=== PATIENT | female | born 1995 | race Two or more races ===

== ENCOUNTER 2017-01-31 23:25 | Emergency (ER) | payer SELFPAY ==
[~2017-01-31] VITALS: Ht 170.2 cm; Wt 68.0 kg
[2017-01-31 23:32] VITALS: BP 122/79
[2017-02-01 00:22] LABS: BACTERIA,URINE FEW /HPF (0-FEW); BILIRUBIN,URINE NEGATIVE (NEG); GLUCOSE,URINE NEGATIVE (NEG); NITRITE,URINE NEGATIVE (NEG); PH,URINE 7.5; PROTEIN,URINE NEGATIVE (NEG-TRACE); RBC,URINE OCC /HPF (0-2)
[2017-02-01 00:23] LABS: SQUAMOUS EPITHELIAL CELL,UR MOD /LPF
--- NOTE | 2017-02-01 05:12 | ED.ADGEN ---
Past Medical History Past Medical History: No Pertinent History Past Surgical History: No Surgical History Alcohol Use: None Drug Use: None Adult General Chief Complaint Chief Complaint: URINARY FREQUENCY HPI HPI Patient is a 21 year old [place] female presents with urinary urgency and frequency for 2 days. No fever chills, nausea vomiting or sweats. No flank pain or lower back pain. Review of Systems Review of Systems ROS as per HPI. Allergies Allergies Allergies Coded Allergies Type Severity Reaction Last Updated Verified No Known Drug Allergies 01/31/17 No Physical Exam Physical Exam Constitutional: Well developed. HENT: Normocephalic, atraumatic, bilateral external ears normal, oropharynx moist. Eyes: PERRLA, EOMI, conjunctiva normal. Neck: Normal range of motion, no tenderness. Cardiovascular:Heart rate regular rhythm, no murmur. Lungs & Thorax: Bilateral breath sounds clear to auscultation. Abdomen: Bowel sounds normal, soft, tenderness to palpation. Skin: Warm, dry. Back: No tenderness. Extremities: No tenderness. Neurologic: Alert and oriented X 3, normal motor function, normal sensory function. Psychologic: Affect normal, judgement normal, mood normal. Current Patient Data Vital Signs Vital Signs Date Time Temp Pulse Resp B/P (MAP) Pulse Ox O2 Delivery O2 Flow Rate FiO2 01/31/17 23:32 98.1 88 18 99 Room Air 98.1 Lab Values Laboratory Tests Test 01/31/17 22:58 01/31/17 23:32 POC Urine HCG, Qualitative Hcg negative (Negative) Urine Collection Type Unknown Urine Color Yellow Urine Clarity Cloudy Urine pH 7.5 Urine Specific [place] 1.020 Urine Protein Negative mg/dL (NEG-TRACE) Urine Glucose (UA) Negative mg/dL (NEG) Urine Ketones (Stick) Negative mg/dL (NEG) Urine Blood Negative (NEG) Urine Nitrite Negative (NEG) Urine Bilirubin Negative (NEG) Urine Urobilinogen Dipstick 1.0 mg/dL (0.2 mg/dL) Urine Leukocyte Esterase Small (NEG) Urine RBC Occ /HPF (0-2) Urine WBC 1-4 /HPF (0-4) Urine Squamous Epithelial Cells Mod /LPF Urine Amorphous Sediment Present /HPF Urine Bacteria Few /HPF (0-FEW) EKG EKG [] Radiology/Procedures Radiology/Procedures [] Course & Med Decision Making Course & Med Decision Making Pertinent Labs and Imaging studies reviewed. (See chart for details) [Abdomen soft, mild tenderness. Will treat for UTI with PCP follow-up. Dragon Disclaimer Dragon Disclaimer This electronic medical record was generated, in whole or in part, using a voice recognition dictation system. BASIL MCMAHON DO Feb 01, 2017 05:12
== END 2017-02-01 00:38 | disposition home or self-care (01) ==
LOC: ER 23:25
DX: R10.9 Unspecified abdominal pain (principal); R35.0 Frequency of micturition; R39.15 Urgency of urination
CPT/HCPCS: 81001; 81025; 87086; 99284

== ENCOUNTER 2017-02-27 22:59 | Emergency (ER) | payer SELFPAY ==
[2017-02-27 23:30] VITALS: BP 124/65
[2017-02-27 23:45] LABS: BILIRUBIN,URINE NEGATIVE (NEG); GLUCOSE,URINE NEGATIVE (NEG); NITRITE,URINE NEGATIVE (NEG); PROTEIN,URINE NEGATIVE (NEG-TRACE)
[2017-02-27] MEDS ORDERED: ONDANSETRON ODT 4 MG TAB.RAPDIS. PO ONE (23:45)
[2017-02-27 23:50] LABS: BACTERIA,URINE FEW /HPF (0-FEW); RBC,URINE 0 /HPF (0-2); SQUAMOUS EPITHELIAL CELL,UR MOD /LPF
[2017-02-28] MEDS ORDERED: NITROFURANTOIN MONOHYD/M-CRYST 100 MG CAPSULE. PO ONE (00:15)
--- NOTE | 2017-02-28 00:29 | ED.ADGEN ---
Past Medical History Past Medical History: No Pertinent History Past Surgical History: No Surgical History Alcohol Use: None Drug Use: None Adult General Chief Complaint Chief Complaint: NAUSEA/VOMITING/DIARRHA HPI HPI Patient is a 21 year old female who presents nausea vomiting, chest and I am missed menstrual period. Patient was seen in the emergency department 4 weeks ago for urinary tract infection. Review of Systems Review of Systems ROS as per HPI. Current Medications Current Medications Current Medications Medications (Trade) Dose Ordered Sig/Emiliana Start Time Stop Time Status Last Admin Dose Admin Nitrofurantoin Macrocrystals (Macrobid) 100 mg 1X ONCE 02/28/17 00:15 02/28/17 00:16 DC 02/28/17 00:09 100 MG Ondansetron HCl (Zofran Odt) 4 mg 1X ONCE 02/27/17 23:45 02/27/17 23:46 DC 02/27/17 23:45 4 MG Allergies Allergies Allergies Coded Allergies Type Severity Reaction Last Updated Verified No Known Drug Allergies 01/31/17 No Physical Exam Physical Exam Constitutional: Well developed, well nourished, no acute distress, non-toxic appearance. [] HENT: Normocephalic, atraumatic, bilateral external ears normal, oropharynx moist, no oral exudates, nose normal. [] Eyes: PERRLA, EOMI, conjunctiva normal, no discharge. [] Neck: Normal range of motion, no tenderness, supple, no stridor. [] Cardiovascular:Heart rate regular rhythm, no murmur [] Lungs & Thorax: Bilateral breath sounds clear to auscultation [] Abdomen: Bowel sounds normal, soft, no tenderness, no masses, no pulsatile masses. [] Skin: Warm, dry, no erythema, no rash. [] Back: No tenderness, no CVA tenderness. [] Extremities: No tenderness, no cyanosis, no clubbing, ROM intact, no edema. [] Neurologic: Alert and oriented X 3, normal motor function, normal sensory function, no focal deficits noted. [] Psychologic: Affect normal, judgement normal, mood normal. [] Current Patient Data Vital Signs Vital Signs Date Time Temp Pulse Resp B/P (MAP) Pulse Ox O2 Delivery O2 Flow Rate FiO2 02/27/17 23:30 98.0 70 20 124/65 (84) 99 Room Air 98.0 Lab Values Laboratory Tests Test 02/27/17 22:42 02/27/17 23:23 POC Urine HCG, Qualitative Hcg positive (Negative) Urine Collection Type Unknown Urine Color Yellow Urine Clarity Clear Urine pH 7.0 Urine Specific [place] 1.020 Urine Protein Negative mg/dL (NEG-TRACE) Urine Glucose (UA) Negative mg/dL (NEG) Urine Ketones (Stick) Negative mg/dL (NEG) Urine Blood Negative (NEG) Urine Nitrite Negative (NEG) Urine Bilirubin Negative (NEG) Urine Urobilinogen Dipstick 2.0 mg/dL (0.2 mg/dL) Urine Leukocyte Esterase Moderate (NEG) Urine RBC 0 /HPF (0-2) Urine WBC 11-20 /HPF (0-4) Urine Squamous Epithelial Cells Mod /LPF Urine Bacteria Few /HPF (0-FEW) Urine Mucus Mod /LPF EKG EKG [] Radiology/Procedures Radiology/Procedures [] Course & Med Decision Making Course & Med Decision Making Pertinent Labs and Imaging studies reviewed. (See chart for details) [Urinary Tract infection, chest wall and likely secondary to reflux and nausea. We'll treat supportively with PCP/CHURN OPERATOR follow-up] Kate Disclaimer Carolynon Disclaimer This electronic medical record was generated, in whole or in part, using a voice recognition dictation system. BASIL MCMAHON DO Feb 28, 2017 00:29
--- NOTE | 2017-02-28 06:29 | EKG ---
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
== END 2017-02-28 00:11 | disposition home or self-care (01) ==
LOC: ER 22:59
DX: R11.2 Nausea with vomiting, unspecified (principal); R19.7 Diarrhea, unspecified
CPT/HCPCS: 81001; 81025; 87086; 93005; 99285; Q0162

== ENCOUNTER 2017-08-12 19:26 | Emergency (ER) | payer SELFPAY ==
[2017-08-12 21:52] LABS: BILIRUBIN,URINE NEGATIVE (NEG); CLARITY,URINE CLOUDY; GLUCOSE,URINE NEGATIVE (NEG); NITRITE,URINE POSITIVE (NEG); PH,URINE 6.5; PROTEIN,URINE 100 mg/dL (NEG-TRACE)
[2017-08-12 21:54] LABS: INFLUENZA A PATIENT NEGATIVE (NEGATIVE); INFLUENZA B PATIENT NEGATIVE (NEGATIVE); OBC FLU VALID
[2017-08-12 21:56] LABS: COLOR,URINE YELLOW
[2017-08-12 21:59] LABS: BACTERIA,URINE MANY /HPF (0-FEW); RBC,URINE RARE /HPF (0-2); SQUAMOUS EPITHELIAL CELL,UR MANY /LPF
== END 2017-08-12 22:39 | disposition home or self-care (01) ==
LOC: ER 19:26
DX: O23.43 Unspecified infection of urinary tract in pregnancy, third trimester (principal); Z3A.00 Weeks of gestation of pregnancy not specified
CPT/HCPCS: 81001; 87086; 87804; 87804-59; 99284

== ENCOUNTER 2017-08-12 22:43 | Observation (INO) | payer SELFPAY ==
[2017-08-12] MEDS ORDERED: IV RINGERS,LACTATED 1000ML 1,000 ML IV (23:13)
== END 2017-08-12 23:48 | disposition home or self-care (01) ==
LOC: 3 SO LND 22:43
DX: O23.43 Unspecified infection of urinary tract in pregnancy, third trimester (principal); Z3A.30 30 weeks gestation of pregnancy
CPT/HCPCS: G0378; G0379

== ENCOUNTER 2017-09-27 06:25 | Inpatient (IN) | payer SELFPAY ==
[~2017-09-27 06:25] MED LIST: L&D EPIDURAL CASSETTE 100 ML EP
[2017-09-27] MEDS ORDERED: OXYTOCIN 30 UNIT/500 ML PREMIX 500 ML IV ×4 (07:15→11:15)
[2017-09-27] MEDS ORDERED: AMPICILLIN SODIUM 2 GM in IV NORMAL SALINE 100ML 100 ML IV (07:15)
[2017-09-27] MEDS ORDERED: TERBUTALINE 1 MG/ML VIAL. SQ ×2 (07:15)
[2017-09-27] MEDS ORDERED: BUTORPHANOL 2 MG/ML VIAL. IV ×2 (07:15)
[2017-09-27] MEDS ORDERED: 0.9 % SODIUM CHLORIDE 10 ML DISP.SYRIN. IV ×4 (07:15→11:15)
[2017-09-27] MEDS ORDERED: AMPICILLIN SODIUM 1 GM in IV NORMAL SALINE 50ML 50 ML IV (07:30)
[2017-09-27] MEDS: fentaNYL PF VIAL 100 MCG/2 ML VIAL IV ×2 (07:41)
[2017-09-27 07:42] LABS: ADD MAN DIFF? NO
[2017-09-27] MEDS: IV RINGERS,LACTATED 1000ML 1,000 ML IV ×8 (07:44→23:13)
[2017-09-27] MEDS: AMPICILLIN SODIUM IV Push 2 GM VIAL. IVP ×2 (07:45)
[2017-09-27 07:53] LABS: BASO % 0 % (0-3); EOS # 0.2 x10^3/uL (0.0-0.7); EOS % 1 % (0-3); HEMATOCRIT 25.4 % (36.0-47.0); HEMOGLOBIN 7.6 g/dL (12.0-15.5); LYMPH # 2.7 x10^3/uL (1.0-4.8); LYMPH % 20 % (24-48); MEAN CORPUSCULAR HEMOGLOBIN 20 pg (25-35); MEAN CORPUSCULAR HGB CONC 30 g/dL (31-37); MEAN CORPUSCULAR VOLUME 67 fL (79-100); MONO # 0.9 x10^3/uL (0.0-1.1); MONO % 7 % (0-9); NEUT # 9.8 x10^3uL (1.8-7.7); NEUT % 72 % (31-73); PLATELET COUNT 163 x10^3/uL (140-400); RED BLOOD COUNT 3.79 x10^6/uL (3.50-5.40); RED CELL DISTRIBUTION WIDTH 19.2 % (11.5-14.5); WHITE BLOOD COUNT 13.7 x10^3/uL (4.0-11.0)
[2017-09-27] MEDS ORDERED: OXYTOCIN PREMIX 30 UNIT/500 ML BAG. IV ×2 (09:00)
[2017-09-27] MEDS ORDERED: L&D EPIDURAL SYRINGE 50 ML EP ×2 (10:00)
[2017-09-27 10:36] LABS: ANISOCYTOSIS PRESENT; HYPOCHROMIA PRESENT; MICROCYTOSIS PRESENT; PLT ESTIMATE ADEQUATE (ADEQUATE); POLYCHROMASIA PRESENT
[2017-09-27] MEDS ORDERED: PHENYLEPH/MINERAL OIL/PETROLAT RECTAL OINTMENT 28GM TUBE. RC ×2 (11:15)
[2017-09-27] MEDS ORDERED: MAG HYDROX/ALUMINUM HYD/SIMETH 30 ML ORAL.SUSP PO ×2 (11:15)
[2017-09-27] MEDS ORDERED: diphenhydrAMINE HCL 25 MG CAPSULE PO ×2 (11:15)
[2017-09-27] MEDS ORDERED: oxyCODONE/APAP 5/325 1 TAB TABLET PO ×4 (11:15)
[2017-09-27] MEDS ORDERED: ACETAMINOPHEN 325 MG TABLET. PO ×2 (11:15)
[2017-09-27] MEDS ORDERED: SIMETHICONE 80 MG TAB.CHEW PO ×2 (11:15)
[2017-09-27] MEDS ORDERED: ZOLPIDEM 5 MG TABLET. PO ×2 (11:15)
[2017-09-27] MEDS ORDERED: HYDROCORTISONE 1% TOPICAL OINTMENT 30GM TUBE. TP ×2 (11:15)
[2017-09-27] MEDS ORDERED: BENZOCAINE 20% TOPICAL AEROSOL SPRAY 57GM CAN. TP ×2 (11:15)
[2017-09-27] MEDS ORDERED: MAGNESIUM HYDROXIDE 2,400 MG/30 ML ORAL.SUSP. PO ×2 (11:15)
[2017-09-27] MEDS: IBUPROFEN 800 MG TABLET. PO ×4 (11:22→22:11)
[2017-09-27] MEDS: LIDOCAINE 1% PF 30 ML VIAL. INJ ×2 (11:23)
[2017-09-27 11:32] LABS: ALBUMIN 2.4 g/dL (3.4-5.0); ALBUMIN/GLOBULIN RATIO 0.6 (1.0-1.7); ALK PHOS 149 U/L (46-116); ALT (SGPT) 12 U/L (14-59); ANION GAP 13 (6-14); AST (SGOT) 22 U/L (15-37); BLOOD UREA NITROGEN 4 mg/dL (7-20); BUN/CREATININE RATIO 7 (6-20); CALCIUM 7.9 mg/dL (8.5-10.1); CARBON DIOXIDE 21 mmol/L (21-32); CHLORIDE 103 mmol/L (98-107); CREATININE 0.6 mg/dL (0.6-1.0); GFR 126.2; GLUCOSE 94 mg/dL (70-99); POTASSIUM 3.7 mmol/L (3.5-5.1); SODIUM 137 mmol/L (136-145); TOTAL BILIRUBIN 0.5 mg/dL (0.2-1.0); TOTAL PROTEIN 6.7 g/dL (6.4-8.2)
[2017-09-27] MEDS: AMPICILLIN SODIUM IV Push 1 GM VIAL. IVP ×6 (12:00→20:00)
[2017-09-27] MEDS: FERROUS SULFATE 325 MG TABLET. PO ×2 (22:11)
[2017-09-27] MEDS: SENNOSIDES/DOCUSATE 8.6/50MG TABLET. PO ×2 (22:12)
[2017-09-28] MEDS: AMPICILLIN SODIUM IV Push 1 GM VIAL. IVP ×10 (04:00→16:00)
[2017-09-28] MEDS: IV RINGERS,LACTATED 1000ML 1,000 ML IV ×8 (04:39→15:13)
[2017-09-28 05:34] LABS: ADD MAN DIFF? NO
[2017-09-28] MEDS: IBUPROFEN 800 MG TABLET. PO ×4 (05:40→21:38)
[2017-09-28 05:50] LABS: BASO % 0 % (0-3); EOS # 0.2 x10^3/uL (0.0-0.7); EOS % 1 % (0-3); HEMATOCRIT 21.2 % (36.0-47.0); LYMPH # 3.1 x10^3/uL (1.0-4.8); LYMPH % 21 % (24-48); MEAN CORPUSCULAR HEMOGLOBIN 20 pg (25-35); MEAN CORPUSCULAR HGB CONC 31 g/dL (31-37); MEAN CORPUSCULAR VOLUME 67 fL (79-100); MONO % 7 % (0-9); NEUT # 10.3 x10^3uL (1.8-7.7); NEUT % 70 % (31-73); PLATELET COUNT 145 x10^3/uL (140-400); RED BLOOD COUNT 3.18 x10^6/uL (3.50-5.40); WHITE BLOOD COUNT 14.6 x10^3/uL (4.0-11.0)
[2017-09-28 06:00] LABS: HEMOGLOBIN 6.5 g/dL (12.0-15.5)
[2017-09-28] MEDS: SENNOSIDES/DOCUSATE 8.6/50MG TABLET. PO ×4 (09:00→21:38)
[2017-09-28] MEDS: DOCUSATE SODIUM 100 MG CAPSULE. PO ×2 (09:36)
[2017-09-28] MEDS: FERROUS SULFATE 325 MG TABLET. PO ×4 (09:36→19:30)
[2017-09-28 13:52] LABS: IMMEDIATE SPIN CROSSMATCH 1 1
[2017-09-28 18:18] LABS: HEMATOCRIT 27.2 % (36.0-47.0); HEMOGLOBIN 8.4 g/dL (12.0-15.5); MEAN CORPUSCULAR HEMOGLOBIN 21 pg (25-35); MEAN CORPUSCULAR HGB CONC 31 g/dL (31-37); MEAN CORPUSCULAR VOLUME 69 fL (79-100); PLATELET COUNT 149 x10^3/uL (140-400); RED BLOOD COUNT 3.93 x10^6/uL (3.50-5.40); RED CELL DISTRIBUTION WIDTH 20.5 % (11.5-14.5); WHITE BLOOD COUNT 17.1 x10^3/uL (4.0-11.0)
[2017-09-29] MEDS: FERROUS SULFATE 325 MG TABLET. PO ×2 (08:13)
[2017-09-29] MEDS: DOCUSATE SODIUM 100 MG CAPSULE. PO ×2 (08:13)
[2017-09-30 08:26] LABS: RPR Non Reactive (Non Reactive)
== END 2017-09-29 16:00 | disposition home or self-care (01) | DRG 775 ==
LOC: 3 SO LND 06:25 → 3 NORTH 11:03
PROC: 10E0XZZ Delivery of Products of Conception, External Approach (ICD-10-PCS; principal; 2017-09-27)
PROC: 30233N1 Transfusion of Nonautologous Red Blood Cells into Peripheral Vein, Percutaneous Approach (ICD-10-PCS; 2017-09-28)
DX: O69.81X0 Labor and delivery complicated by cord around neck, without compression, not applicable or unspecified (principal); D50.0 Iron deficiency anemia secondary to blood loss (chronic); O99.02 Anemia complicating childbirth; Z3A.40 40 weeks gestation of pregnancy; Z37.0 Single live birth
CPT/HCPCS: 36415; 80053; 85025; 85027; 86593; 86850; 86900; 86901; 86920; J0290; J2590; J3010; J7120; P9016

== ENCOUNTER 2018-08-23 22:17 | Observation (INO) | payer SELFPAY ==
[2017-09-29 15:30] VITALS: BP 133/82
[~2018-08-23 22:17] MED LIST changes: +HYDR-3164 PO; -L&D EPIDURAL CASSETTE 100 ML EP; +NAPR-514 PO; +NITR100C62 PO
[2018-08-23 23:58] LABS: BASO % 0 % (0-3); EOS # 0.5 x10^3/uL (0.0-0.7); EOS % 5 % (0-3); HEMATOCRIT 21.9 % (36.0-47.0); HEMOGLOBIN 7.2 g/dL (12.0-15.5); LYMPH # 2.1 x10^3/uL (1.0-4.8); LYMPH % 19 % (24-48); MEAN CORPUSCULAR HEMOGLOBIN 22 pg (25-35); MEAN CORPUSCULAR HGB CONC 33 g/dL (31-37); MEAN CORPUSCULAR VOLUME 66 fL (79-100); MONO # 0.9 x10^3/uL (0.0-1.1); MONO % 8 % (0-9); NEUT # 7.4 x10^3uL (1.8-7.7); NEUT % 68 % (31-73); PLATELET COUNT 213 x10^3/uL (140-400); RED BLOOD COUNT 3.33 x10^6/uL (3.50-5.40); RED CELL DISTRIBUTION WIDTH 17.5 % (11.5-14.5); WHITE BLOOD COUNT 10.9 x10^3/uL (4.0-11.0)
--- NOTE | 2018-08-24 00:08 | RAD ---
Examination: Obstetric ultrasound greater than 14 weeks HISTORY: History of contractions, , no care COMPARISON: None available FINDINGS: Single living intrauterine identified with heart rate of 136 bpm. movement, cardiac activity, 4 chamber heart, three-vessel cord, fluid in the bladder, stomach, kidneys, are identified. position is cephalic. brain and spine are not well-visualized. Amniotic fluid index measures 7.1 cm. Ultrasound age is 35 weeks and 0 days with ultrasound date of delivery is 09/27/2018. Estimated weight 2536 g. Cephalic index 82.2. Head circumference to abdominal circumference ratio 1.02. Femur length to biparietal diameter 78. Femur length to head circumference 21.1. Femur length to abdominal circumference 21.5. The biparietal diameter measures 8.58 cm corresponding to 34 weeks and 4 days. Head circumference measures 31.7 cm corresponding to 35 weeks and 5 days. Abdominal circumference measures 31.06 cm corresponding to 35 weeks and 0 days. Femur length measures 6.6 cm corresponding 34 weeks and 3 days. IMPRESSION: 1. Single living intrauterine with heart of 135 bpm. Ultrasound age is 35 weeks and 0 days. 2. Amniotic fluid index measures 7.1 cm. Electronically signed by: Micheal Zapien MD (08/24/2018 12:03 AM) [facility]
[2018-08-24 00:39] LABS: BILIRUBIN,URINE NEGATIVE (NEG); CLARITY,URINE CLEAR; COLOR,URINE YELLOW; NITRITE,URINE NEGATIVE (NEG); PH,URINE 6.5; PROTEIN,URINE NEGATIVE (NEG-TRACE)
[2018-08-24 00:45] LABS: BARBITURATES NEG (NEG); BENZODIAZEPINES NEG (NEG); CANNABINOIDS NEG (NEG); COCAINE NEG (NEG); METHADONE NEG (NEG); OPIATES NEG (NEG); PHENCYCLIDINE NEG (NEG)
[2018-08-24 00:47] LABS: AMPHETAMINE/METHAMPHETAMINE NEG (NEG)
[2018-08-24 00:49] LABS: BACTERIA,URINE FEW /HPF (0-FEW); RBC,URINE 20-40 /HPF (0-2); SQUAMOUS EPITHELIAL CELL,UR FEW /LPF
[2018-08-24 05:15] LABS: HYPOCHROMIA MOD; PLT ESTIMATE ADEQUATE (ADEQUATE); POLYCHROMASIA SLIGHT
[2018-08-24 05:16] LABS: ANISOCYTOSIS SLIGHT; MICROCYTOSIS MARKED
== END 2018-08-24 03:03 | disposition home or self-care (01) ==
LOC: 3 SO LND 22:17
PROVIDERS: ADMIT Family Medicine; ATTEND Family Medicine
DX: O26.893 Other specified pregnancy related conditions, third trimester (principal); R10.9 Unspecified abdominal pain; R10.2 Pelvic and perineal pain; R30.9 Painful micturition, unspecified; Z3A.35 35 weeks gestation of pregnancy
CPT/HCPCS: 36415; 76805; 80307; 81001; 85025; 86592; 86762; 86850; 86900; 86901; 87340; G0378; G0379; 87086

== ENCOUNTER 2018-09-28 13:37 | Inpatient (IN) | payer SELFPAY ==
[~2018-09-28] VITALS: Ht 160 cm; Wt 93.4 kg
[2018-09-28] MEDS ORDERED: OXYTOCIN 30 UNIT/500 ML PREMIX 500 ML IV PRN ×3 (14:15→17:45)
[2018-09-28] MEDS ORDERED: LIDOCAINE 1% PF 30 ML VIAL. INJ PRN (14:15)
[2018-09-28] MEDS ORDERED: BUTORPHANOL 2 MG/ML VIAL. IV PRN ×2 (14:15)
[2018-09-28] MEDS ORDERED: fentaNYL PF VIAL 100 MCG/2 ML VIAL IV PRN (14:15)
[2018-09-28] MEDS ORDERED: IV RINGERS,LACTATED 1000ML 1,000 ML IV PRN (14:15)
[2018-09-28] MEDS ORDERED: ONDANSETRON PF 4 MG/2 ML VIAL. IV PRN (14:15)
[2018-09-28] MEDS ORDERED: 0.9 % SODIUM CHLORIDE 10 ML DISP.SYRIN. IV PRN ×2 (14:15→17:45)
[2018-09-28] MEDS ORDERED: AMPICILLIN SODIUM 2 GM in IV NORMAL SALINE 100ML 100 ML IV ONE (14:30)
[2018-09-28 14:43] LABS: BILIRUBIN,URINE NEGATIVE (NEG); CLARITY,URINE CLEAR; COLOR,URINE AMBER; NITRITE,URINE NEGATIVE (NEG); PH,URINE 6.5; PROTEIN,URINE 30 mg/dL (NEG-TRACE)
[2018-09-28 15:00] VITALS: BP 135/81
[2018-09-28 15:01] LABS: BASO % 0 % (0-3); EOS # 0.4 x10^3/uL (0.0-0.7); EOS % 4 % (0-3); HEMATOCRIT 23.3 % (36.0-47.0); HEMOGLOBIN 7.2 g/dL (12.0-15.5); LYMPH # 1.9 x10^3/uL (1.0-4.8); LYMPH % 18 % (24-48); MEAN CORPUSCULAR HEMOGLOBIN 19 pg (25-35); MEAN CORPUSCULAR HGB CONC 31 g/dL (31-37); MEAN CORPUSCULAR VOLUME 62 fL (79-100); MONO # 0.5 x10^3/uL (0.0-1.1); MONO % 5 % (0-9); NEUT # 7.9 x10^3uL (1.8-7.7); NEUT % 74 % (31-73); PLATELET COUNT 171 x10^3/uL (140-400); RED BLOOD COUNT 3.73 x10^6/uL (3.50-5.40); RED CELL DISTRIBUTION WIDTH 19.7 % (11.5-14.5); WHITE BLOOD COUNT 10.7 x10^3/uL (4.0-11.0)
[2018-09-28 15:37] LABS: BACTERIA,URINE FEW /HPF (0-FEW); RBC,URINE 0 /HPF (0-2); SQUAMOUS EPITHELIAL CELL,UR MOD /LPF
[2018-09-28] MEDS ORDERED: OXYTOCIN PREMIX 30 UNIT/500 ML BAG. IV ONE (17:00)
[2018-09-28] MEDS ORDERED: PHENYLEPH/MINERAL OIL/PETROLAT RECTAL OINTMENT 28GM TUBE. RC PRN (17:45)
[2018-09-28] MEDS ORDERED: SIMETHICONE 80 MG TAB.CHEW PO PRN (17:45)
[2018-09-28] MEDS ORDERED: diphenhydrAMINE HCL 25 MG CAPSULE PO PRN (17:45)
[2018-09-28] MEDS ORDERED: oxyCODONE/APAP 5/325 1 TAB TABLET PO PRN (17:45)
[2018-09-28] MEDS ORDERED: BENZOCAINE 20% TOPICAL AEROSOL SPRAY 57GM CAN. TP PRN (17:45)
[2018-09-28] MEDS ORDERED: MAGNESIUM HYDROXIDE 2,400 MG/30 ML ORAL.SUSP. PO PRN (17:45)
[2018-09-28] MEDS ORDERED: MAG HYDROX/ALUMINUM HYD/SIMETH 30 ML ORAL.SUSP PO PRN (17:45)
[2018-09-28] MEDS ORDERED: HYDROCORTISONE 1% TOPICAL OINTMENT 30GM TUBE. TP PRN (17:45)
[2018-09-28] MEDS ORDERED: MMR per PROTOCOL. MC PRN (17:45)
[2018-09-28] MEDS ORDERED: ZOLPIDEM 5 MG TABLET. PO PRN (17:45)
[2018-09-28] MEDS ORDERED: ACETAMINOPHEN 325 MG TABLET. PO PRN (17:45)
--- NOTE | 2018-09-28 17:47 | PDOC ---
GENERAL General: 23 yrs old female from [facility] Came in Labor Cervix dilated 4 Cms. Admitted for Delivery. VITAL SIGNS Vital Signs: Vital Signs Date Time Temp Pulse Resp B/P (MAP) Pulse Ox O2 Delivery O2 Flow Rate FiO2 09/28/18 15:47 20 09/28/18 15:00 98.1 90 135/81 (99) 98.1 ALLERGIES Allergies: Allergies Coded Allergies Type Severity Reaction Last Updated Verified No Known Drug Allergies 01/31/17 No MEDS Medications: Current Medications Medications (Trade) Dose Ordered Sig/Emiliana Start Time Stop Time Status Last Admin Dose Admin Ampicillin Sodium 1 gm/Sodium Chloride 50 ml @ 100 mls/hr Q4H 09/28/18 18:00 Ampicillin Sodium 2 gm/Sodium Chloride 100 ml @ 200 mls/hr 1X ONCE 09/28/18 14:30 09/28/18 14:59 DC 09/28/18 15:03 200 MLS/HR Butorphanol Tartrate (Stadol) 2 mg PRN Q1HR PRN 09/28/18 14:15 Fentanyl Citrate (Fentanyl 2ml Vial) 100 mcg PRN Q1HR PRN 09/28/18 14:15 09/28/18 15:47 100 MCG Ibuprofen (Motrin) 800 mg PRN Q6HRS PRN 09/28/18 14:15 Lidocaine HCl (Xylocaine 1% Pf 30ml Vial) 30 ml 1X PRN PRN 09/28/18 14:15 09/30/18 14:14 Ondansetron HCl (Zofran) 4 mg PRN Q4HRS PRN 09/28/18 14:15 Oxytocin/Sodium Chloride 500 ml @ 0 mls/hr CONT PRN PRN 09/28/18 14:15 Ringer's Solution 1,000 ml @ 125 mls/hr Q8H PRN 09/28/18 14:15 09/28/18 14:29 125 MLS/HR Sodium Chloride (Normal Saline Flush) 3 ml QSHIFT PRN 09/28/18 14:15 LAB Lab: Laboratory Tests Test 09/28/18 14:00 09/28/18 14:25 Urine Collection Type Unknown Urine Color Trudy Urine Clarity Clear Urine pH 6.5 Urine Specific [place] 1.020 Urine Protein 30 mg/dL (NEG-TRACE) Urine Glucose (UA) Negative mg/dL (NEG) Urine Ketones (Stick) Negative mg/dL (NEG) Urine Blood Negative (NEG) Urine Nitrite Negative (NEG) Urine Bilirubin Negative (NEG) Urine Urobilinogen Dipstick 2.0 mg/dL (0.2 mg/dL) Urine Leukocyte Esterase Small (NEG) Urine RBC 0 /HPF (0-2) Urine WBC 1-4 /HPF (0-4) Urine Squamous Epithelial Cells Mod /LPF Urine Bacteria Few /HPF (0-FEW) Urine Mucus Mod /LPF White Blood Count 10.7 x10^3/uL (4.0-11.0) Red Blood Count 3.73 x10^6/uL (3.50-5.40) Hemoglobin 7.2 g/dL (12.0-15.5) Hematocrit 23.3 % (36.0-47.0) Mean Corpuscular Volume 62 fL (79-100) Mean Corpuscular Hemoglobin 19 pg (25-35) Mean Corpuscular Hemoglobin Concent 31 g/dL (31-37) Red Cell Distribution Width 19.7 % (11.5-14.5) Platelet Count 171 x10^3/uL (140-400) Neutrophils (%) (Auto) 74 % (31-73) Lymphocytes (%) (Auto) 18 % (24-48) Monocytes (%) (Auto) 5 % (0-9) Eosinophils (%) (Auto) 4 % (0-3) Basophils (%) (Auto) 0 % (0-3) Neutrophils # (Auto) 7.9 x10^3uL (1.8-7.7) Lymphocytes # (Auto) 1.9 x10^3/uL (1.0-4.8) Monocytes # (Auto) 0.5 x10^3/uL (0.0-1.1) Eosinophils # (Auto) 0.4 x10^3/uL (0.0-0.7) Basophils # (Auto) 0.0 x10^3/uL (0.0-0.2) ASSESSMENT & PLAN A&P Delivered an alive Male Baby by Spontaneous Vaginal Delivery. Alive Male Baby 7lbs and 15oz delivered with 8 and 9. CORBY ZURITA MD Sep 28, 2018 17:47
[2018-09-28] MEDS ORDERED: IBUPROFEN 200 MG TABLET. PO SCH (18:00)
[2018-09-28] MEDS ORDERED: AMPICILLIN SODIUM 1 GM in IV NORMAL SALINE 50ML 50 ML IV SCH (18:00)
[2018-09-28] MEDS: IBUPROFEN 400 MG TABLET. PO PRN (18:05)
--- NOTE | 2018-09-28 18:16 | HP ---
ADMIT DATE: 09/28/2018 CHIEF COMPLAINT AND HISTORY OF PRESENT ILLNESS: This patient is a 23-year-old female, who is a 2, para 1, EDC 09/26/2018, had just 1 previous visit at the hospital here and she was sent home. She comes in today with a history of having contractions. The patient in active labor and at the time of admission to the hospital, cervix dilated to 4 cm, membranes intact, having active contractions and the heart tones are 146 per minute. ALLERGIES: None known. PAST MEDICAL HISTORY: Nothing of importance. She has had a previous normal delivery. PHYSICAL EXAMINATION: VITAL SIGNS: Being stable. HEAD, EYES, NOSE, THROAT: Within normal limits. LUNGS: Clear. HEART: Heart sounds regular sinus rhythm. BREASTS: No masses palpable. ABDOMEN: Soft, term size uterus. heart tones are 146 per minute, vertex presenting, having contractions. PELVIC: Showed cervix 4 cm dilated and membranes intact and no bleeding noted at this time. EXTREMITIES: No edema of feet. IMPRESSION: 2, term . PLAN: Vaginal delivery. CORBY ZURITA MD DR: REYNALDO/marcus JOB#: [id number] / [id number]
--- NOTE | 2018-09-28 18:18 | OP ---
DATE OF SURGERY: 09/28/2018 DELIVERY NOTE This patient is a 23-year-old female, who is from [facility], comes in to the hospital Labor and Delivery with a history of having contractions and the patient in active labor and at the time of admission to the hospital, cervix was dilated to 4 cm, membranes bulging. heart tones are 140 per minute, vertex presenting, the patient having active contractions and she did have a normal course of labor. Amniotomy was done and she was about 9 cm and she had a spontaneous vaginal delivery. A live male infant weighing 7 pound 15 ounce was delivered with the score of 8, 9 and 9 without any problem. Cord was clamped and cut. Cord blood was taken. Placenta removed spontaneous. No vaginal lacerations noted. Estimated blood loss about 100 mL. Baby is referred to civil draftsman for further care and treatment. Mother tolerated the delivery well. No complications at this time. CORBY ZURITA MD DR: REYNALDO/marcus JOB#: [id number] / [id number]
[2018-09-28 18:52] LABS: ANISOCYTOSIS SLIGHT; HYPOCHROMIA MARKED; MICROCYTOSIS MARKED; PLT ESTIMATE ADEQUATE (ADEQUATE); POIKILOCYTOSIS SLIGHT
[2018-09-28 18:53] LABS: POLYCHROMASIA PRESENT
[2018-09-28 20:07] VITALS: BP 122/64
[2018-09-28 21:19] VITALS: BP 132/83
[2018-09-29] VITALS (12 sets, daily range): BP systolic 98–152; BP diastolic 59–88
[2018-09-29] MEDS: IBUPROFEN 400 MG TABLET. PO PRN (05:12)
--- NOTE | 2018-09-29 09:53 | PDOC ---
GENERAL General: Abdomen soft Doing ok. VITAL SIGNS Vital Signs: Vital Signs Date Time Temp Pulse Resp B/P (MAP) Pulse Ox O2 Delivery O2 Flow Rate FiO2 09/29/18 05:51 97.5 82 18 135/78 (97) 99 Room Air 97.5 I & O I & O Intake and Output 09/29/18 06:59 Intake Total 1200 ml Balance 1200 ml Intake Oral 1200 ml # Voids 3 ALLERGIES Allergies: Allergies Coded Allergies Type Severity Reaction Last Updated Verified No Known Drug Allergies 01/31/17 No MEDS Medications: Current Medications Medications (Trade) Dose Ordered Sig/Emiliana Start Time Stop Time Status Last Admin Dose Admin Acetaminophen (Tylenol) 650 mg PRN Q6HRS PRN 09/28/18 17:45 Al Hydroxide/Mg Hydroxide (Mylanta Plus Xs) 30 ml PRN Q4HRS PRN 09/28/18 17:45 Ampicillin Sodium 1 gm/Sodium Chloride 50 ml @ 100 mls/hr Q4H 09/28/18 18:00 Ampicillin Sodium 2 gm/Sodium Chloride 100 ml @ 200 mls/hr 1X ONCE 09/28/18 14:30 09/28/18 14:59 DC 09/28/18 15:03 200 MLS/HR Benzocaine (Americaine) 1 spray PRN QID PRN 09/28/18 17:45 09/28/18 18:05 1 SPRAY Butorphanol Tartrate (Stadol) 2 mg PRN Q1HR PRN 09/28/18 14:15 Diphenhydramine HCl (Benadryl) 25 mg PRN Q6HRS PRN 09/28/18 17:45 Docusate Sodium (Colace) 100 mg PRN BID PRN 09/28/18 17:45 Fentanyl Citrate (Fentanyl 2ml Vial) 100 mcg PRN Q1HR PRN 09/28/18 14:15 09/28/18 15:47 100 MCG Ferrous Sulfate (Feosol) 325 mg BIDWMEALS 09/29/18 08:00 Hydrocortisone (Cortaid) 1 akua PRN QID PRN 09/28/18 17:45 Ibuprofen (Motrin) 600 mg Q6HRS 09/28/18 18:00 Info (Do NOT chart on this placeholder) 1 ea 1X PRN PRN 09/28/18 17:45 Lidocaine HCl (Xylocaine 1% Pf 30ml Vial) 30 ml 1X PRN PRN 09/28/18 14:15 09/30/18 14:14 Magnesium Hydroxide (Milk Of Magnesia) 2,400 mg PRN DAILY PRN 09/28/18 17:45 Ondansetron HCl (Zofran) 4 mg PRN Q4HRS PRN 09/28/18 14:15 Oxycodone/ Acetaminophen (Percocet 5/325) 2 tab PRN Q4HRS PRN 09/28/18 17:45 Oxytocin/Sodium Chloride 500 ml @ 62.5 mls/hr CONT PRN 09/28/18 17:45 09/29/18 01:44 DC Phenyleph/Shark Oil/Min Oil/Petrol (Preparation H) 1 akua PRN QID PRN 09/28/18 17:45 Ringer's Solution 1,000 ml @ 125 mls/hr Q8H PRN 09/28/18 14:15 09/28/18 14:29 125 MLS/HR Simethicone (Gas-X) 80 mg PRN AFTMEALHC PRN 09/28/18 17:45 Sodium Chloride (Normal Saline Flush) 10 ml QSHIFT PRN 09/28/18 17:45 Zolpidem Tartrate (Ambien) 5 mg PRN QHS PRN 09/28/18 17:45 LAB Lab: Laboratory Tests Test 09/28/18 14:00 09/28/18 14:25 09/29/18 05:00 Urine Collection Type Unknown Urine Color Trudy Urine Clarity Clear Urine pH 6.5 Urine Specific [place] 1.020 Urine Protein 30 mg/dL (NEG-TRACE) Urine Glucose (UA) Negative mg/dL (NEG) Urine Ketones (Stick) Negative mg/dL (NEG) Urine Blood Negative (NEG) Urine Nitrite Negative (NEG) Urine Bilirubin Negative (NEG) Urine Urobilinogen Dipstick 2.0 mg/dL (0.2 mg/dL) Urine Leukocyte Esterase Small (NEG) Urine RBC 0 /HPF (0-2) Urine WBC 1-4 /HPF (0-4) Urine Squamous Epithelial Cells Mod /LPF Urine Bacteria Few /HPF (0-FEW) Urine Mucus Mod /LPF White Blood Count 10.7 x10^3/uL (4.0-11.0) Red Blood Count 3.73 x10^6/uL (3.50-5.40) Hemoglobin 7.2 g/dL (12.0-15.5) 6.2 g/dL (12.0-15.5) Hematocrit 23.3 % (36.0-47.0) 20.8 % (36.0-47.0) Mean Corpuscular Volume 62 fL (79-100) Mean Corpuscular Hemoglobin 19 pg (25-35) Mean Corpuscular Hemoglobin Concent 31 g/dL (31-37) Red Cell Distribution Width 19.7 % (11.5-14.5) Platelet Count 171 x10^3/uL (140-400) Neutrophils (%) (Auto) 74 % (31-73) Lymphocytes (%) (Auto) 18 % (24-48) Monocytes (%) (Auto) 5 % (0-9) Eosinophils (%) (Auto) 4 % (0-3) Basophils (%) (Auto) 0 % (0-3) Neutrophils # (Auto) 7.9 x10^3uL (1.8-7.7) Lymphocytes # (Auto) 1.9 x10^3/uL (1.0-4.8) Monocytes # (Auto) 0.5 x10^3/uL (0.0-1.1) Eosinophils # (Auto) 0.4 x10^3/uL (0.0-0.7) Basophils # (Auto) 0.0 x10^3/uL (0.0-0.2) Platelet Estimate Adequate (ADEQUATE) Polychromasia Present Hypochromasia Marked Poikilocytosis Slight Anisocytosis Slight Microcytosis Marked Treponema pallidum Antibody Nonreactive (Nonreactive) HIV (1&2) Antibody Screen Nonreactive (Nonreactive) ASSESSMENT & PLAN A&P Vital signs stable. HB 6.2 today. 2 units BT given Doing ok No problems. CORBY ZURITA MD Sep 29, 2018 09:53
[2018-09-29] MEDS: DOCUSATE SODIUM 100 MG CAPSULE. PO PRN ×2 (10:12→21:57)
[2018-09-29] MEDS: FERROUS SULFATE 325 MG TABLET. PO SCH ×2 (10:12→21:57)
[2018-09-29] MEDS ORDERED: MEASLES, MUMPS & RUBELLA VACC 0.5 ML VIAL. VAX SQ ONE (13:30)
[2018-09-29 21:23] LABS: HEMATOCRIT 25.9 % (36.0-47.0)
[2018-09-30 05:58] VITALS: BP 128/73
[2018-09-30] MEDS: IBUPROFEN 400 MG TABLET. PO PRN ×2 (06:33→15:06)
[2018-09-30 10:52] VITALS: BP 131/90
--- NOTE | 2018-09-30 11:01 | PDOC ---
GENERAL General: Patient doing ok No problems. Likes to go home. VITAL SIGNS Vital Signs: Vital Signs Date Time Temp Pulse Resp B/P (MAP) Pulse Ox O2 Delivery O2 Flow Rate FiO2 09/30/18 10:52 97.5 76 18 131/90 (104) 97 Room Air 97.5 I & O I & O Intake and Output 09/30/18 07:00 Intake Total 1340 ml Balance 1340 ml Intake Oral 1000 ml Blood Product IV Normal Saline Flush 340 ml # Voids 1 ALLERGIES Allergies: Allergies Coded Allergies Type Severity Reaction Last Updated Verified No Known Drug Allergies 01/31/17 No MEDS Medications: Current Medications Medications (Trade) Dose Ordered Sig/Emiliana Start Time Stop Time Status Last Admin Dose Admin Acetaminophen (Tylenol) 650 mg PRN Q6HRS PRN 09/28/18 17:45 Al Hydroxide/Mg Hydroxide (Mylanta Plus Xs) 30 ml PRN Q4HRS PRN 09/28/18 17:45 Ampicillin Sodium 1 gm/Sodium Chloride 50 ml @ 100 mls/hr Q4H 09/28/18 18:00 Ampicillin Sodium 2 gm/Sodium Chloride 100 ml @ 200 mls/hr 1X ONCE 09/28/18 14:30 09/28/18 14:59 DC 09/28/18 15:03 200 MLS/HR Benzocaine (Americaine) 1 spray PRN QID PRN 09/28/18 17:45 09/28/18 18:05 1 SPRAY Butorphanol Tartrate (Stadol) 2 mg PRN Q1HR PRN 09/28/18 14:15 Diphenhydramine HCl (Benadryl) 25 mg PRN Q6HRS PRN 09/28/18 17:45 Docusate Sodium (Colace) 100 mg PRN BID PRN 09/28/18 17:45 09/29/18 21:57 100 MG Fentanyl Citrate (Fentanyl 2ml Vial) 100 mcg PRN Q1HR PRN 09/28/18 14:15 09/28/18 15:47 100 MCG Ferrous Sulfate (Feosol) 325 mg BIDWMEALS 09/29/18 08:00 09/29/18 21:57 325 MG Hydrocortisone (Cortaid) 1 akua PRN QID PRN 09/28/18 17:45 Ibuprofen (Motrin) 600 mg Q6HRS 09/28/18 18:00 2/26/19 22:00 600 MG Info (Do NOT chart on this placeholder) 1 ea 1X PRN PRN 09/28/18 17:45 Lidocaine HCl (Xylocaine 1% Pf 30ml Vial) 30 ml 1X PRN PRN 09/28/18 14:15 09/30/18 14:14 Magnesium Hydroxide (Milk Of Magnesia) 2,400 mg PRN DAILY PRN 09/28/18 17:45 Measles/Mumps/ Rubella Vaccine Live (M-M-R Ii Vaccine With Diluent) 0.5 ml ONCE ONCE 09/29/18 13:30 09/29/18 13:31 DC Ondansetron HCl (Zofran) 4 mg PRN Q4HRS PRN 09/28/18 14:15 Oxycodone/ Acetaminophen (Percocet 5/325) 2 tab PRN Q4HRS PRN 09/28/18 17:45 Oxytocin/Sodium Chloride (Oxytocin Premix Infusion) 30 unit STK-MED ONCE 09/28/18 17:00 09/30/18 09:13 DC Phenyleph/Shark Oil/Min Oil/Petrol (Preparation H) 1 akua PRN QID PRN 09/28/18 17:45 Ringer's Solution 1,000 ml @ 125 mls/hr Q8H PRN 09/28/18 14:15 09/28/18 14:29 125 MLS/HR Simethicone (Gas-X) 80 mg PRN AFTMEALHC PRN 09/28/18 17:45 Sodium Chloride (Normal Saline Flush) 10 ml QSHIFT PRN 09/28/18 17:45 Zolpidem Tartrate (Ambien) 5 mg PRN QHS PRN 09/28/18 17:45 LAB Lab: Laboratory Tests Test 09/29/18 21:15 Hemoglobin 8.0 g/dL (12.0-15.5) Hematocrit 25.9 % (36.0-47.0) Mean Corpuscular Hemoglobin Concent 31 g/dL (31-37) ASSESSMENT & PLAN A&P Abdomen soft. Hb 8.0 Doing ok. Patient can go home today. Needs to come for 6 weeks checkup. in office. CORBY ZURITA MD Sep 30, 2018 11:01
[2018-09-30 14:15] VITALS: BP 128/86
[2018-09-30] MEDS: FERROUS SULFATE 325 MG TABLET. PO SCH (15:06)
[2018-09-30] MEDS: DOCUSATE SODIUM 100 MG CAPSULE. PO PRN (15:06)
--- NOTE | 2018-09-30 16:08 | NUR ---
SS following up with referral for no care. SS met with infants mother and educational sign language interpreter to assess circumstances regarding the referral. As observed, infants mother seemed to be bonding well with infant. SS provided infants mother with education regarding medical care and the importance of care and well child visits. SS provided infants mother with information for [facility] services and recommended she contact them today and schedule an appointment for infant's first well child check. SS provided infants mother with information on WIC and recommended that she contact WIC today and schedule an appointment. SS discussed [facility] with infants mother and infants mother agreed to [facility] referral. SS faxed [facility] referral to [phone]; fax [phone]. SS also provided infants mother with resources for obtaining diapers. Infants mother reported that she had a car seat and supplies for infant and had good family support. SS provided information to infants mother for the [facility] for her own medical needs and provided her with a $4 medication list and prescription savings card. Infants mother denied history of substance use or behavioral health. Infants mother has negative UDS.
--- NOTE | 2018-10-16 20:38 | DS ---
DATE OF DISCHARGE: 09/30/2018 SUBJECTIVE: The patient is a 23-year-old female who is from [facility] and has been here for 10 years and came into the Labor and Delivery at [facility] in active labor. She is a 2, para 1, EDC 09/26/2018, admitted to the hospital on 09/28/2018. The patient in active labor, cervix 4 cm dilated at the time of admission. OBJECTIVE: VITAL SIGNS: Stable. HEAD, EYES, EARS, NOSE, THROAT: Within normal limits. LUNGS: Clear. HEART: Sounds regular sinus rhythm. She did have a spontaneous vaginal delivery. A live male weighing 7 pounds 15 ounces was delivered without any problem and she did have severe anemia and her hemoglobin dropped to 6.2. Hence, 2 units of blood transfusion was given after baby was born and further care has been normal. She was dismissed to home care on 09/30/2018 with the advice to come back to the office in 6 weeks for care and treatment. DIAGNOSES: 1. 2, term . 2. The patient in active labor, had spontaneous vaginal delivery. CORBY ZURITA MD DR: REYNALDO/marcus JOB#: [id number] / [id number]
== END 2018-09-30 20:15 | disposition home or self-care (01) | DRG 807 ==
LOC: OBSVTOIN 13:37 → 3 SO LND 13:37 → 3 NORTH 20:18
PROVIDERS: ADMIT Obstetrics & Gynecology; ATTEND Obstetrics & Gynecology
PROC: 10E0XZZ Delivery of Products of Conception, External Approach (ICD-10-PCS; principal; 2018-09-30)
PROC: 30233N1 Transfusion of Nonautologous Red Blood Cells into Peripheral Vein, Percutaneous Approach (ICD-10-PCS; 2018-09-30)
PROC: 10907ZC Drainage of Amniotic Fluid, Therapeutic from Products of Conception, Via Natural or Artificial Opening (ICD-10-PCS; 2018-09-30)
DX: O80 Encounter for full-term uncomplicated delivery (principal); Z37.0 Single live birth; Z3A.40 40 weeks gestation of pregnancy
CPT/HCPCS: 36415; 81001; 85014; 85018; 85025; 86592; 86703; 86850; 86900; 86901; 86920; 87086; 90471; 90707; J0290; J2590; J3010; J7120; P9016